=== PATIENT | male | born 1990 | race Caucasian/White ===

== ENCOUNTER 2016-10-12 22:38 | Observation (INO) | payer SELFPAY ==
[2016-10-12] MEDS ORDERED: Ondansetron 4 MG/2 ML SDV IVPUSH ONE (22:58)
[2016-10-12] MEDS ORDERED: HYDROmorphone 2 MG/ML Syringe IVPUSH ONE (22:58)
[2016-10-12] MEDS ORDERED: Pantoprazole 40 MG Vial IVPUSH ONE (22:58)
[2016-10-12] MEDS ORDERED: Sodium Chloride 0.9% 1,000 ML IV ONE (22:58)
[2016-10-12] MEDS ORDERED: Sodium Chloride 0.9% 2.5 ML Syringe FLUSH PRN (22:58)
[2016-10-12] MEDS ORDERED: Ketorolac 30 MG/ML SDV IVPUSH ONE (22:58)
[2016-10-12] MEDS ORDERED: Sodium Chloride 0.9% 10 ML Syringe FLUSH PRN (22:58)
--- NOTE | 2016-10-12 23:03 | EDM.PDOC ---
ED HPI GENERAL MEDICAL PROBLEM - General Chief Complaint: Abdominal Pain Stated Complaint: STOMACH PAINS Time Seen by Provider: 10/12/16 22:52 - History of Present Illness INITIAL COMMENTS - FREE TEXT/NARRATIVE: HISTORY AND PHYSICAL: History of present illness: The patient is a healthy 26-year-old male who presents with complaints of mid abdominal pain nausea and vomiting that started approximately 5 hours ago. According to the patient he ate some fast food today and did drink some beer which he normally doesn't do and started having the discomfort in the mid abdomen which radiates all over associated with nausea and vomiting all at once. He has not had a fever chest pain or cough and no diarrhea. He states that he takes a lot of [id number] medications for heartburn and that has been going on for the last one year but he has not seen her provider. He has not had black or bloody stools. The patient took an [id number] nausea med that he was given but no other medications for pain. Patient describes the pain is deep cramping and sharp and he says it is all a result abdomen and does not localize right or left. There is no pain in his flank or his back Review of systems: As per history of present illness and below otherwise all systems reviewed and negative. Past medical history: As per history of present illness and as reviewed below otherwise noncontributory. Surgical history: As per history of present illness and as reviewed below otherwise noncontributory. Social history: No reported history of drug or alcohol abuse. Family history: As per history of present illness and as reviewed below otherwise noncontributory. Physical exam: Gen.: Well-developed well-nourished male who is nontoxic and looks uncomfortable in the room and is somewhat dramatic with exam but is consolable. Vital signs of the note by me. HEENT: Atraumatic, normocephalic, pupils reactive, negative for conjunctival pallor or scleral icterus, mucous membranes tacky, throat clear, neck supple, nontender, trachea midline. Lungs: Clear to auscultation, breath sounds equal bilaterally, chest nontender. Heart: S1S2, regular, rate and rhythm no overt murmurs D. Abdomen: Soft, nondistended, flat abdomen without any tympany and bowel sounds are very hypoactive. There is diffuse abdominal tenderness which is more localized in the mid abdomen and to the right in the left of the umbilicus not specifically low or high. There is some voluntary guarding but no involuntary guarding or rebound. Negative for masses or hepatosplenomegaly. Negative for costovertebral tenderness. Pelvis: Stable nontender. Genitourinary: Deferred. Rectal: Deferred. Extremities: Atraumatic, negative for cords or calf pain. Neurovascular unremarkable. Neuro: Awake, alert, oriented. Cranial nerves II through XII unremarkable. Cerebellum unremarkable. Motor and sensory unremarkable throughout. Exam nonfocal. Diagnostics: CBC CMP amylase lipase UA alcohol level CT scan of the abdomen and pelvis Therapeutics: IV IV fluids Zofran Toradol Dilaudid Zosyn 0030: Dr. Ramirez has reviewed the CT scan and feels that the patient has acute appendicitis and requested I give a dose of Zosyn. We will plan on observing the patient and having surgery later this morning. The patient and significant other at the bedside are aware of this care plan. The patient last ate before 6 PM last evening. Impression: Acute appendicitis Definitive disposition and diagnosis as appropriate pending reevaluation and review of above. Right Upper Abdomen Pain Score (Numeric/FACES): 5 - Related Data Allergies Allergy/AdvReac Type Severity Reaction Status Date / Time No Known Allergies Allergy Verified 10/12/16 22:48 Home Meds: Home Meds . [No Known Home Meds] 10/12/16 [History] Past Medical History - Past Health History Medical/Surgical History: Denies Medical/Surgical History - Infectious Disease History Infectious Disease History: Reports: Chicken Pox Social & Family History - Family History Family Medical History: Noncontributory - Tobacco Use Smoking Status *Q: Current Every Day Smoker Years of Tobacco use: 8 Packs/Tins Daily: 1 - Recreational Drug Use Recreational Drug Use: No ED ROS GENERAL - Review of Systems Review Of Systems: ROS reveals no pertinent complaints other than HPI. ED EXAM, GENERAL - Physical Exam Exam: See Below (See dictation) Course - Vital Signs Last Recorded V/S: Last Vital Signs Temp 35.0 C L 10/12/16 22:42 Pulse 78 10/12/16 22:42 Resp 22 H 10/12/16 22:42 BP 130/69 10/12/16 22:42 Pulse Ox 100 10/12/16 22:42 - Orders/Labs/Meds Orders: Active Orders 24 hr Category Date Time Status Patient Status [ADT] Stat ADT 10/13/16 00:31 Ordered Abdomen Pelvis w Cont [CT] Stat Exams 10/12/16 Ordered Abdomen Pelvis w Cont [CT] Stat Exams 10/12/16 22:58 Ordered UA W/MICROSCOPIC [URIN] Stat Lab 10/13/16 00:30 Ordered Piperacillin/Tazobactam [Piperacil-Tazobact] 3.375 gm Med 10/13/16 00:30 Ordered Sodium Chloride 0.9% [Normal Saline] 50 ml IV ONETIME Sodium Chloride 0.9% [Saline Flush] Med 10/12/16 22:58 Active 10 ml FLUSH ASDIRECTED PRN Sodium Chloride 0.9% [Saline Flush] Med 10/12/16 22:58 Active 2.5 ml FLUSH ASDIRECTED PRN Saline Lock Insert [OM.PC] Stat Oth 10/12/16 22:57 Ordered Medication Orders Piperacillin Sod/Tazobactam (Sod 3.375 gm/ Sodium Chloride) 50 mls @ 100 mls/ hr IV ONETIME ONE Stop: 10/13/16 00:59 Sodium Chloride (Saline Flush) 10 ml FLUSH ASDIRECTED PRN PRN Reason: Keep Vein Open Sodium Chloride (Saline Flush) 2.5 ml FLUSH ASDIRECTED PRN PRN Reason: Keep Vein Open Labs: Laboratory Tests 10/12/16 10/12/16 Range/Units 22:50 22:50 WBC 13.36 H (4.0-11.0) K/uL RBC 5.36 (4.50-5.90) M/uL Hgb 17.5 H (13.0-17.0) g/dL Hct 48.8 (38.0-50.0) % MCV 91.0 (80.0-98.0) fL MCH 32.6 H (27.0-32.0) pg MCHC 35.9 (31.0-37.0) g/dL RDW Std Deviation 42.2 (28.0-62.0) fl RDW Coeff of Jayda 13 (11.0-15.0) % Plt Count 253 (150-400) K/uL MPV 10.90 (7.40-12.00) fL Neut % (Auto) 83.2 H (48.0-80.0) % Lymph % (Auto) 14.4 L (16.0-40.0) % [place] % (Auto) 2.0 (0.0-15.0) % Eos % (Auto) 0.2 (0.0-7.0) % Baso % (Auto) 0.2 (0.0-1.5) % Neut # (Auto) 11.1 H (1.4-5.7) K/uL Lymph # (Auto) 1.9 (0.6-2.4) K/uL [place] # (Auto) 0.3 (0.0-0.8) K/uL Eos # (Auto) 0.0 (0.0-0.7) K/uL Baso # (Auto) 0.0 (0.0-0.1) K/uL Nucleated RBC % 0.0 /100WBC Nucleated RBCs # 0 K/uL Sodium 145 (136-146) mmol/L Potassium 3.9 (3.5-5.1) mmol/L Chloride 108 (98-110) mmol/L Carbon Dioxide 22 (21-31) mmol/L BUN 8 (6.0-23.0) mg/dL Creatinine 1.0 (0.6-1.5) mg/dL Est Cr Clr Drug Dosing TNP Estimated GFR (MDRD) > 60.0 ml/min Glucose 120 H (60-110) mg/dL Calcium 10.3 (8.8-10.8) mg/dL Total Bilirubin 0.8 (0.1-1.5) mg/dL AST 29 (5-40) IU/L ALT 24 (8-54) IU/L Alkaline Phosphatase 106 (40-150) Total Protein 8.4 H (6.0-8.0) g/dL Albumin 5.1 H (3.5-5.0) g/dL Globulin 3.3 (2.0-3.5) g/dL Albumin/Globulin Ratio 1.6 (1.3-2.8) Amylase 36 (10-90) U/L Lipase 22 (7-80) U/L Ethyl Alcohol 47.2 mg/dL Meds: Medications Generic Name Dose Route Start Last Admin Trade Name Freq PRN Reason Stop Dose Admin Piperacillin Sod/Tazobactam 50 mls @ 100 mls/hr 10/13/16 00:30 Sod 3.375 gm/ Sodium Chloride IV 10/13/16 00:59 ONETIME ONE Sodium Chloride 10 ml 10/12/16 22:58 Saline Flush FLUSH ASDIRECTED PRN Keep Vein Open Sodium Chloride 2.5 ml 10/12/16 22:58 Saline Flush FLUSH ASDIRECTED PRN Keep Vein Open Discontinued Medications Generic Name Dose Route Start Last Admin Trade Name Freq PRN Reason Stop Dose Admin Hydromorphone HCl 1 mg 10/12/16 22:58 10/12/16 23:07 Dilaudid IVPUSH 10/12/16 22:59 1 mg ONETIME ONE Administration Sodium Chloride 1,000 mls @ 999 mls/hr 10/12/16 22:58 10/12/16 23:05 Normal Saline IV 10/12/16 23:58 999 mls/hr STAT ONE Administration Ketorolac Tromethamine 30 mg 10/12/16 22:58 10/12/16 23:05 Toradol IVPUSH 10/12/16 22:59 30 mg ONETIME ONE Administration Ondansetron HCl 4 mg 10/12/16 22:58 10/12/16 23:02 Zofran IVPUSH 10/12/16 22:59 4 mg ONETIME ONE Administration Pantoprazole Sodium 40 mg 10/12/16 22:58 10/12/16 23:13 Protonix Iv IVPUSH 10/12/16 22:59 40 mg .BOLUS ONE Administration Departure - Departure Time of Disposition: 00:34 Disposition: Refer to Observation Condition: Good Clinical Impression: Appendicitis Qualifiers: Appendicitis type: acute appendicitis Acute appendicitis type: unspecified acute appendicitis type Qualified Code(s): K35.80 - Unspecified acute appendicitis - Discharge Information Forms: ED Department Discharge - My Orders Last 24 Hours: My Active Orders 10/12/16 Abdomen Pelvis w Cont [CT] Stat 10/12/16 22:57 Saline Lock Insert [OM.PC] Stat 10/12/16 22:58 Abdomen Pelvis w Cont [CT] Stat Sodium Chloride 0.9% [Saline Flush] 10 ml FLUSH ASDIRECTED PRN Sodium Chloride 0.9% [Saline Flush] 2.5 ml FLUSH ASDIRECTED PRN 10/13/16 00:30 UA W/MICROSCOPIC [URIN] Stat Piperacillin/Tazobactam [Piperacil-Tazobact] 3.375 gm Sodium Chloride 0.9% [ Normal Saline] 50 ml IV ONETIME 10/13/16 00:31 Patient Status [ADT] Stat - Assessment/Plan Last 24 Hours: My Active Orders 10/12/16 Abdomen Pelvis w Cont [CT] Stat 10/12/16 22:57 Saline Lock Insert [OM.PC] Stat 10/12/16 22:58 Abdomen Pelvis w Cont [CT] Stat Sodium Chloride 0.9% [Saline Flush] 10 ml FLUSH ASDIRECTED PRN Sodium Chloride 0.9% [Saline Flush] 2.5 ml FLUSH ASDIRECTED PRN 10/13/16 00:30 UA W/MICROSCOPIC [URIN] Stat Piperacillin/Tazobactam [Piperacil-Tazobact] 3.375 gm Sodium Chloride 0.9% [ Normal Saline] 50 ml IV ONETIME 10/13/16 00:31 Patient Status [ADT] Stat
[2016-10-12 23:17] LABS: CHLORIDE,CL 108 mmol/L (98-110); SODIUM,NA 145 mmol/L (136-146)
[2016-10-13] MEDS ORDERED: Piperacillin/Tazobactam 3.375 GM in Sodium Chloride 0.9% 50 ML IV ONE (00:30)
--- NOTE | 2016-10-13 01:08 | PCM.HP ---
H&P History of Present Illness - General Date of Service: 10/13/16 Admit Problem/Dx: Patient is a 26 year old otherwise healthy male who presents with abdominal pain. His pain started this evening after 6pm. He had just eaten supper. He developed nausea, vomiting, and RLQ pain. The pain was sharp in nature and made it difficult for him to walk. He c/o subjective fever and chills. He denies any infectious contacts. He has never had anything like this in the past. He presented to the ER and was given 1 L of NS, toradol, zofran and dilaudid. His pain and nausea subsided. Source of Information: Patient History Limitations: Reports: No Limitations Right Upper Abdomen Pain Score (Numeric/FACES): 5 - Related Data Allergies/Adverse Reactions: Allergies Allergy/AdvReac Type Severity Reaction Status Date / Time No Known Allergies Allergy Verified 10/12/16 22:48 Home Medications: Home Meds . [No Known Home Meds] 10/12/16 [History] Past Medical History - Past Health History Medical/Surgical History: Denies Medical/Surgical History Cardiovascular History: Reports: Heart Murmur - Infectious Disease History Infectious Disease History: Reports: Chicken Pox - Past Surgical History Head Surgeries/Procedures: Reports: None Social & Family History - Family History Family Medical History: Noncontributory - Tobacco Use Smoking Status *Q: Current Every Day Smoker Years of Tobacco use: 8 Packs/Tins Daily: 1 - Recreational Drug Use Recreational Drug Use: No H&P Review of Systems - Review of Systems: Review Of Systems: ROS reveals no pertinent complaints other than HPI. Exam - Exam Exam: See Below - Vital Signs Vital Signs: Last Vital Signs Temp 35.0 C L 10/12/16 22:42 Pulse 78 10/12/16 22:42 Resp 22 H 10/12/16 22:42 BP 130/69 10/12/16 22:42 Pulse Ox 100 10/12/16 22:42 Weight: 95.254 kg - Exam General: Alert, Oriented HEENT: Conjunctiva Clear, EACs Clear, EOMI Neck: Supple, Trachea Midline Lungs: Clear to Auscultation, Normal Respiratory Effort Cardiovascular: Regular Rate, Regular Rhythm GI/Abdominal Exam: Soft, Non-Tender, No Distention, No Mass, Pelvis Stable. No : Distended, Guarding, Rigid, Rebound, Tender (Male) Exam: No Hernia Back Exam: Normal Inspection Extremities: Normal Inspection, Normal Range of Motion - Patient Data Result Diagrams: 10/12/16 22:50 10/12/16 22:50 *Q Meaningful Use (ADM) - VTE *Q VTE Criteria *Q: - Stroke *Q Stroke Criteria *Q: - AMI *Q AMI Criteria *Q: - Problem List (1) Abdominal pain SNOMED Code(s): 65002347 ICD Code: R10.9 - UNSPECIFIED ABDOMINAL PAIN Status: Acute Current Visit : Yes (2) Nausea & vomiting SNOMED Code(s): 30520359 ICD Code: R11.2 - NAUSEA WITH VOMITING, UNSPECIFIED Status: Acute Current Visit: Yes Problem List Initiated/Reviewed/Updated: Yes Orders Last 24hrs: Medication Orders Sodium Chloride (Saline Flush) 10 ml FLUSH ASDIRECTED PRN PRN Reason: Keep Vein Open Sodium Chloride (Saline Flush) 2.5 ml FLUSH ASDIRECTED PRN PRN Reason: Keep Vein Open Assessment/Plan Comment:: The patient's history, labs and initial physical exam by the ER physician are concerning for acute appendicitis. The CT abdomen/pelvis was read as negative and I discussed these findings with the radiologist. I felt I saw an enlarged anterior to the cecum appendix. She feels this is a loop of terminal ileum. I would like to observe the patient overnight. I will not give him pain medication and closely follow his abdominal exam. I will continue IVFs and NPO status. I will not give him any further antibiotics. If in the morning he has no tenderness, is vitally stable, and able to tolerate a diet I will discharge him home. If his pain returns or his WBC remains elevated I will take him for an appendectomy. The patient does complain of severe heartburn for the last year and so I will check an H. pylori antigen. He was given IV protonix in the ED. He will eventually need to be re-evaluated as an outpatient.
[2016-10-13] MEDS ORDERED: diphenhydrAMINE 50 MG/ML SDV IVPUSH PRN (01:20)
[2016-10-13] MEDS ORDERED: Ondansetron 4 MG/2 ML SDV IVPUSH PRN (01:20)
[2016-10-13] MEDS ORDERED: Lactated Ringers 1,000 ML IV SCH (01:30)
[2016-10-13] MEDS ORDERED: Iopamidol 755 MG/ML 500 ML Multipack Bottle IVPUSH STA (01:47)
[2016-10-13 08:48] VITALS: BP 121/64
--- NOTE | 2016-10-13 09:52 | PCM.DCSUM1 ---
Discharge Summary - Hospital Course Free Text/Narrative:: Patient is a 26 yo male admited last evening with nausea vomiting and RLQ with peritoneal signs on arrival. His labs showed a leukocytosis with left shift. A CT was performed that was read as negative, but given his clinical presentation and labs he was admited overnight for observation. In the ED he was given IV protonix, IV dilaudid, toradol and zofran with resolution of his symptoms. He was given IVF and kept NPO. He was stable over the last 8 hours and this morning his CBC was normal. He was hungry and he denied any abdominal pain. He was ambulating without difficulty. His vitals were stable. His abdominal exam was benign and therefore he was discharged home. - Discharge Data Discharge Date: 10/13/16 Discharge Disposition: Home, Self-Care 01 Condition: Good - Discharge Diagnosis/Problem(s) (1) Abdominal pain SNOMED Code(s): 42562839 ICD Code: R10.9 - UNSPECIFIED ABDOMINAL PAIN Status: Acute Current Visit : Yes (2) Nausea & vomiting SNOMED Code(s): 90688639 ICD Code: R11.2 - NAUSEA WITH VOMITING, UNSPECIFIED Status: Acute Current Visit: Yes - Patient Instructions Diet: Regular Diet as Tolerated Activity: Rest and Relax Today Driving: May Drive Today Showering/Bathing: May Shower Notify Provider of: Fever, Increased Pain, Nausea and/or Vomiting - Discharge Plan Prescriptions/Med Rec: Omeprazole 20 mg PO DAILY #30 cap.cr Home Medications: Home Meds Omeprazole 20 mg PO DAILY #30 cap.cr 10/13/16 [Rx] Patient Handouts: Abdominal Pain, Adult, Omeprazole tablets (OTC) Referrals: Eunice Ramriez MD [Physician] - (Call on Saturday to schedule a hospital follow up in 4 weeks) - Discharge Summary/Plan Comment DC Time >30 min.: No - General Info Date of Service: 10/13/16 Functional Status: Reports: Pain Controlled, Ambulating, Urinating, Other ( Patient is hungry and wants to eat. ) - Review of Systems General: Reports: No Symptoms Pulmonary: Reports: No Symptoms Cardiovascular: Reports: No Symptoms Gastrointestinal: Reports: No Symptoms - Patient Data Vitals - Most Recent: Last Vital Signs Temp 36.4 C 10/13/16 08:00 Pulse 71 10/13/16 08:00 Resp 16 10/13/16 08:00 BP 121/64 10/13/16 08:00 Pulse Ox 95 10/13/16 08:00 Weight - Most Recent: 95.254 kg I&O - Last 24 hours: Intake & Output 10/12/16 10/13/16 10/13/16 22:59 06:59 14:59 Intake Total 1150 Output Total 250 Balance 900 Lab Results - Last 24 hrs: Laboratory Results - last 24 hr 10/13/16 10/13/16 Range/Units 01:22 05:04 WBC 10.10 (4.0-11.0) K/uL RBC 4.74 (4.50-5.90) M/uL Hgb 14.9 (13.0-17.0) g/dL Hct 44.0 (38.0-50.0) % MCV 92.8 (80.0-98.0) fL MCH 31.4 (27.0-32.0) pg MCHC 33.9 (31.0-37.0) g/dL RDW Std Deviation 43.7 (28.0-62.0) fl RDW Coeff of Jayda 13 (11.0-15.0) % Plt Count 258 (150-400) K/uL MPV 10.90 (7.40-12.00) fL Neut % (Auto) 77.6 (48.0-80.0) % Lymph % (Auto) 17.1 (16.0-40.0) % [place] % (Auto) 4.6 (0.0-15.0) % Eos % (Auto) 0.5 (0.0-7.0) % Baso % (Auto) 0.2 (0.0-1.5) % Neut # (Auto) 7.8 H (1.4-5.7) K/uL Lymph # (Auto) 1.7 (0.6-2.4) K/uL [place] # (Auto) 0.5 (0.0-0.8) K/uL Eos # (Auto) 0.1 (0.0-0.7) K/uL Baso # (Auto) 0.0 (0.0-0.1) K/uL Nucleated RBC % 0.0 /100WBC Nucleated RBCs # 0 K/uL H. pylori IgG Antibody NEGATIVE (NEG) Med Orders - Current: Current Medications Diphenhydramine HCl (Benadryl) 25 mg IVPUSH Q4H PRN PRN Reason: Itching Lactated Ringer's (Ringers, Lactated) 1,000 mls @ 125 mls/hr IV ASDIRECTED KEVEN Last Admin: 10/13/16 01:45 Dose: 125 mls/hr Ondansetron HCl (Zofran) 4 mg IVPUSH Q6H PRN PRN Reason: Nausea/Vomiting Sodium Chloride (Saline Flush) 10 ml FLUSH ASDIRECTED PRN PRN Reason: Keep Vein Open Sodium Chloride (Saline Flush) 2.5 ml FLUSH ASDIRECTED PRN PRN Reason: Keep Vein Open Discontinued Medications Hydromorphone HCl (Dilaudid) 1 mg IVPUSH ONETIME ONE Stop: 10/12/16 22:59 Last Admin: 10/12/16 23:07 Dose: 1 mg Sodium Chloride (Normal Saline) 1,000 mls @ 999 mls/hr IV STAT ONE Stop: 10/12/16 23:58 Last Admin: 10/12/16 23:05 Dose: 999 mls/hr Piperacillin Sod/Tazobactam (Sod 3.375 gm/ Sodium Chloride) 50 mls @ 100 mls/ hr IV ONETIME ONE Stop: 10/13/16 00:59 Last Admin: 10/13/16 00:42 Dose: 100 mls/hr Iopamidol (Isovue Multipack-370 (76%)) 100 ml IVPUSH ONETIME STA Stop: 10/13/16 01:48 Last Admin: 10/13/16 01:47 Dose: 100 ml Ketorolac Tromethamine (Toradol) 30 mg IVPUSH ONETIME ONE Stop: 10/12/16 22:59 Last Admin: 10/12/16 23:05 Dose: 30 mg Ondansetron HCl (Zofran) 4 mg IVPUSH ONETIME ONE Stop: 10/12/16 22:59 Last Admin: 10/12/16 23:02 Dose: 4 mg Pantoprazole Sodium (Protonix Iv) 40 mg IVPUSH .BOLUS ONE Stop: 10/12/16 22:59 Last Admin: 10/12/16 23:13 Dose: 40 mg - Exam General: Reports: Alert, Oriented HEENT: Reports: Pupils Equal, Pupils Reactive Neck: Reports: Supple Lungs: Reports: Normal Respiratory Effort Cardiovascular: Reports: Regular Rate GI/Abdominal Exam: Soft, Non-Tender, No Distention. No: Guarding, Rigid, Rebound, Tender *Q Meaningful Use (DIS) - VTE *Q VTE Criteria *Q: - Stroke *Q Stroke Criteria *Q: - AMI *Q AMI Criteria *Q:
--- NOTE | 2016-10-15 10:48 | CT ---
EXAM DATE: 10/13/16 PATIENT'S AGE: 26 Patient: KIMI BELTRÁN Facility: [place], [place] Site . Site : 1990 Study: CT Abdomen/Pelvis [id number]/29/2017 12:42:07 AM Ordering Physician: ELISABET Final Report: INDICATION: Right upper quadrant pain TECHNIQUE: CT abdomen and pelvis acquired with IV contrast. COMPARISON: None FINDINGS: Lower chest: Unremarkable. Liver: Unremarkable. Spleen: Unremarkable. Pancreas: Unremarkable. Gallbladder and bile ducts: Unremarkable. Adrenal glands: Unremarkable. Kidneys: Unremarkable. GI tract: Unremarkable. Appendix is normal. Vascular structures: Unremarkable. Lymph nodes: Unremarkable. Miscellaneous: Unremarkable. No free air or significant free fluid. Pelvic Organs: Unremarkable. Bones: Unremarkable for age. IMPRESSION: Unremarkable CT of the abdomen and pelvis. Please note that all CT scans at this facility use dose modulation, iterative reconstruction, and/or weight-based dosing when appropriate to reduce radiation dose to as low as reasonably achievable. Dictated by Fina Brice MD @ Oct 13 2016 12:48AM (Electronic Signature) Report Signed by Proxy. [facility]
== END 2016-10-13 09:45 | disposition home or self-care (01) ==
LOC: MW.ED 22:38 → MW.MS 10-13 00:38
PROVIDERS: ADMIT Surgery; ATTEND Surgery
DX: R10.31 Right lower quadrant pain (principal); R11.2 Nausea with vomiting, unspecified; F17.210 Nicotine dependence, cigarettes, uncomplicated; D72.829 Elevated white blood cell count, unspecified
CPT/HCPCS: 36415; 74177; 80053; 81001; 82150; 83690; 85025; 86677; 96361; 96365; 96375; 99285; C9113; G0480; J1170; J1885; J2405; J2543; J7040; J7050; J7120; Q9967; 99283; G0378

== ENCOUNTER 2017-08-11 11:58 | Emergency (ER) | payer SELFPAY ==
--- NOTE | 2017-08-11 12:30 | EDM.PDOC ---
ED HPI GENERAL MEDICAL PROBLEM - General Chief Complaint: ENT Problem Stated Complaint: SORE THROAT Time Seen by Provider: 08/11/17 12:27 Source of Information: Reports: Patient, Family History Limitations: Reports: No Limitations - History of Present Illness INITIAL COMMENTS - FREE TEXT/NARRATIVE: HISTORY AND PHYSICAL: []26-year-old male presenting with swelling to the right side of his jaw History of Present Illness: []Admission is trying to get on Medicaid in [place] to have his dental visits paid for He has dental caries fractured tooth at the tooth #30 Review of Systems: As per history of present illness and below otherwise all systems reviewed and negative. Past medical history: As per history of present illness and as reviewed below otherwise noncontributory. Surgical history: As per history of present illness and as reviewed below otherwise noncontributory. Social history: No reported history of drug or alcohol abuse. Family history: As per history of present illness and as reviewed below otherwise noncontributory. Physical exam: Oriented male answering questions appropriately in full sentences with out any shortness of breath he is nontoxic in appearance HEENT: Atraumatic, normocehpalic, pupils reactive, negative for conjunctival pallor or scleral icterus, mucous membranes moist, throat clear, neck supple, nontender, trachea midline. Acute tenderness with palpation to the outer right jaw line #30 is fractured and has multiple caries gumline is edematous Lungs: Clear to auscultation, breath sounds equal bilaterally, chest non tender. Heart: S1S2, regular, negative for clicks, rubs, or JVD. Abdomen: Soft, nondistended, nontender. Negative for masses or hepatossplenmegaly. Negative for costovertebral tenderness. Pelvis: Stable nontender. Genitourinary: Deferred. Rectal: Deferred Extremities: Atraumatic, negative for cords or calf pain. Neurovascular unremarkable. Neuro: Awake, alert, oriented. Cranial nerves II through XII unremarkable. Cerebellum unremarkable. Motor and sensory unremarkable throughout. Exam nonfocal. Diagnostics: [] Therapeutics: [] Dental balls Impression: []Tooth fracture and caries Plan: []Discharged home Antibiotic therapy amoxicillin Follow up with your dentist will be the only final treatment for this Return to the emergency department as directed and discussed Definitive disposition and diagnosis as appropriate pending reevaluation and review of above. Onset: Gradual Duration: Week(s):, Getting Worse Location: Reports: Face rightg lower dental Pain Score (Numeric/FACES): 3 - Related Data Allergies Allergy/AdvReac Type Severity Reaction Status Date / Time No Known Allergies Allergy Verified 08/11/17 12:10 Home Meds: Home Meds Amoxicillin 500 mg PO TID #30 capsule 08/11/17 [Rx] Past Medical History - Past Health History Medical/Surgical History: Denies Medical/Surgical History Cardiovascular History: Reports: Heart Murmur Gastrointestinal History: Reports: Other (See Below) Other Gastrointestinal History: heartburn - Infectious Disease History Infectious Disease History: Reports: Chicken Pox - Past Surgical History Head Surgeries/Procedures: Reports: None Social & Family History - Family History Family Medical History: Noncontributory - Tobacco Use Smoking Status *Q: Current Every Day Smoker Years of Tobacco use: 7 Packs/Tins Daily: 1 - Caffeine Use Caffeine Use: Reports: Coffee - Recreational Drug Use Recreational Drug Use: No ED ROS ENT - Review of Systems Review Of Systems: ROS reveals no pertinent complaints other than HPI. ED EXAM, ENT - Physical Exam Exam: See Below (see dictation) Course - Vital Signs Last Recorded V/S: Last Vital Signs Temp 35.8 C 08/11/17 12:11 Pulse 72 08/11/17 12:11 Resp 18 08/11/17 12:11 BP 119/72 08/11/17 12:11 Pulse Ox 98 08/11/17 12:11 - Orders/Labs/Meds Meds: Medications Discontinued Medications Generic Name Dose Route Start Last Admin Trade Name Freq PRN Reason Stop Dose Admin Benzocaine 2 each 08/11/17 12:42 Hurricaine One 20% MUCMEM 08/11/17 12:43 ONETIME ONE Lidocaine HCl 15 ml 08/11/17 12:42 Xylocaine 2% Viscous PO 08/11/17 12:43 ONETIME ONE Departure - Departure Time of Disposition: 12:41 Disposition: Home, Self-Care 01 Condition: Good Clinical Impression: Dental abscess, Dental caries extending into dentin Fracture of tooth Qualifiers: Encounter type: initial encounter Fracture type: closed Qualified Code(s): S02.5XXA - Fracture of tooth (traumatic), initial encounter for closed fracture - Discharge Information Prescriptions: Amoxicillin 500 mg PO TID #30 capsule Instructions: Dental Abscess, [id number] Referrals: PCP,None [Primary Care Provider] - Forms: ED Department Discharge Additional Instructions: The following information is given to patients seen in the emergency department who are being discharged to home. This information is to outline your options for follow-up care. We provide all patients seen in our emergency department with a follow-up referral. The need for follow-up, as well as the timing and circumstances, are variable depending upon the specifics of your emergency department visit. If you don't have a primary care physician on staff, we will provide you with a referral. We always advise you to contact your personal physician following an emergency department visit to inform them of the circumstance of the visit and for follow-up with them and/or the need for any referrals to a consulting specialist. The emergency department will also refer you to a specialist when appropriate. This referral assures that you have the opportunity for followup care with a specialist. All of these measure are taken in an effort to provide you with optimal care, which includes your followup. Under all circumstances we always encourage you to contact your private physician who remains a resource for coordinating your care. When calling for followup care, please make the office aware that this follow-up is from your recent emergency room visit. If for any reason you are refused follow-up, please contact the [facility] emergency department at and asked to speak to the emergency department charge nurse. You have an abscess because of your poor dental health He needs to see a dentist to fix this problem You are given dental balls while in the emergency Department for discomfort
[2017-08-11] MEDS ORDERED: Benzocaine 20% Topical Spray UD MUCMEM ONE (12:42)
[2017-08-11] MEDS ORDERED: Lidocaine 2% Viscous Solution 15 ML Cup PO ONE (12:42)
[2017-08-11 13:04] VITALS: BP 109/67
== END 2017-08-11 13:02 | disposition home or self-care (01) ==
LOC: MW.ED 11:58
DX: K03.81 Cracked tooth (principal); K02.9 Dental caries, unspecified; K04.7 Periapical abscess without sinus; F17.210 Nicotine dependence, cigarettes, uncomplicated
CPT/HCPCS: 99282; A9270

== ENCOUNTER 2020-10-05 06:46 | Emergency (ER) | payer MEDICAID ==
--- NOTE | 2020-10-05 07:34 | EDM.PDOC ---
ED HPI GENERAL MEDICAL PROBLEM - General Chief Complaint: Fever Stated Complaint: FEVER Time Seen by Provider: 10/05/20 07:12 Source of Information: Reports: Patient History Limitations: Reports: No Limitations - History of Present Illness INITIAL COMMENTS - FREE TEXT/NARRATIVE: Patient is a 30-year-old male who presents today for fever. States he had a fever for the past 3 days. And his girlfriend states has been trying [id number] day and NyQuil. He states that he also has a productive cough and some nasal drainage. He also reports some body ache. He states he is been able to tolerate p.o. Denies any shortness of breath increased urination rashes or confusion or any other concerning symptoms. lower back Pain Score (Numeric/FACES): 4 - Related Data Allergies Allergy/AdvReac Type Severity Reaction Status Date / Time No Known Allergies Allergy Verified 10/05/20 07:16 Home Meds: Home Meds . [No Known Home Meds] 10/05/20 [History] Past Medical History - Past Health History Medical/Surgical History: Denies Medical/Surgical History HEENT History: Reports: None Cardiovascular History: Reports: Heart Murmur Respiratory History: Reports: None Gastrointestinal History: Reports: Other (See Below) Other Gastrointestinal History: heartburn Genitourinary History: Reports: None Musculoskeletal History: Reports: None Neurological History: Reports: None Psychiatric History: Reports: None Endocrine/Metabolic History: Reports: None Hematologic History: Reports: None Immunologic History: Reports: None Oncologic (Cancer) History: Reports: None Dermatologic History: Reports: None - Infectious Disease History Infectious Disease History: Reports: Chicken Pox - Past Surgical History Head Surgeries/Procedures: Reports: None Social & Family History - Family History Family Medical History: No Pertinent Family History - Tobacco Use Tobacco Use Status *Q: Current Every Day Tobacco User Years of Tobacco use: 14 Packs/Tins Daily: 1 - Caffeine Use Caffeine Use: Reports: None - Recreational Drug Use Recreational Drug Use: No ED ROS GENERAL - Review of Systems Review Of Systems: See Below Constitutional: Reports: Fever, Fatigue HEENT: Reports: No Symptoms Respiratory: Reports: No Symptoms Cardiovascular: Reports: No Symptoms Endocrine: Reports: No Symptoms GI/Abdominal: Reports: No Symptoms : Reports: No Symptoms Musculoskeletal: Reports: No Symptoms Skin: Reports: No Symptoms Neurological: Reports: No Symptoms Psychiatric: Reports: No Symptoms Hematologic/Lymphatic: Reports: No Symptoms Immunologic: Reports: No Symptoms ED EXAM, GENERAL - Physical Exam Exam: See Below Exam Limited By: No Limitations General Appearance: Alert, WD/WN, No Apparent Distress Neck: Normal Inspection Respiratory/Chest: No Respiratory Distress, Lungs Clear Cardiovascular: Normal Peripheral Pulses, Regular Rate, Rhythm GI/Abdominal: Normal Bowel Sounds, Soft, Non-Tender Neurological: Alert, Oriented, CN II-XII Intact, Normal Cognition, Normal Gait Course - Vital Signs Last Recorded V/S: Last Vital Signs Temp 98.0 F 10/05/20 07:13 Pulse 82 10/05/20 08:28 Resp 18 10/05/20 08:28 BP 128/71 10/05/20 08:28 Pulse Ox 98 10/05/20 08:28 - Orders/Labs/Meds Labs: Laboratory Tests 10/05/20 Range/Units 07:40 Influenza Type A RNA NEGATIVE (NEGATIVE) Influenza Type B RNA NEGATIVE (NEGATIVE) SARS-CoV-2 RNA (ATTILA) NEGATIVE (NEGATIVE) - Re-Assessments/Exams Free Text/Narrative Re-Assessment/Exam: 10/05/20 08:36 Patient Covid is negative x-ray also negative. Patient looks well on exam is not febrile satting 100% on room air patient will be discharged home and give strict return precautions. Departure - Departure Time of Disposition: 08:37 Disposition: Home, Self-Care 01 Condition: Good Clinical Impression: Viral illness - Discharge Information *PRESCRIPTION DRUG MONITORING PROGRAM REVIEWED*: Not Applicable *COPY OF PRESCRIPTION DRUG MONITORING REPORT IN PATIENT ESTEFANY: Not Applicable Instructions: Viral Illness, Adult Referrals: PCP,None [Primary Care Provider] - Forms: ED Department Discharge Additional Instructions: The following information is given to patients seen in the emergency department who are being discharged to home. This information is to outline your options for follow-up care. We provide all patients seen in our emergency department with a follow-up referral. The need for follow-up, as well as the timing and circumstances, are variable depending upon the specifics of your emergency department visit. If you don't have a primary care physician on staff, we will provide you with a referral. We always advise you to contact your personal physician following an emergency department visit to inform them of the circumstance of the visit and for follow-up with them and/or the need for any referrals to a consulting specialist. The emergency department will also refer you to a specialist when appropriate. This referral assures that you have the opportunity for follow-up care with a specialist. All of these measure are taken in an effort to provide you with optimal care, which includes your follow-up. Under all circumstances we always encourage you to contact your private physician who remains a resource for coordinating your care. When calling for f ollow-up care, please make the office aware that this follow-up is from your recent emergency room visit. If for any reason you are refused follow-up, please contact the [facility] Emergency Department at and asked to speak to the emergency department charge nurse. Please follow up with your primary care physician. If you do not have a primary care physician, see below: [facility] [address] [place] [id number] [facility] [address] [place] [id number] You were evaluated in the Emergency Department today for a cough. Your chest xray did not show evidence of a pneumonia- your cough is most likely due to a viral illness which will improve on its own with rest and fluids. You can take over the counter medications such as dextromethorphan to help manage your symptoms. Please schedule an appointment for follow up with your primary care physician within two days. Return to the Emergency Department if you experience worsening cough, fever 100.4 F or greater, recurrent vomiting, chest pain, shortness of breath, or any other concerning symptoms. Thank you for choosing us for your care Sepsis Event Note (ED) - Evaluation Sepsis Screening Result: No Definite Risk - Focused Exam Vital Signs: Vital Signs Temp Pulse Resp BP Pulse Ox 10/05/20 08:28 82 18 128/71 98 10/05/20 07:13 98.0 F 83 18 131/80 96 - Assessment/Plan Plan: Patient is a 30-year-old male presents today for fever. Patient is try [id number] medication without relief. We will obtain a Covid swab/flu as well as chest x-ray.
--- NOTE | 2020-10-05 08:09 | CR ---
INDICATION: Cough TECHNIQUE: Chest 1 view COMPARISON: None FINDINGS: Cardiovascular and mediastinum: Heart size and vasculature are normal in caliber and appearance. Lungs and pleural spaces: Lungs are clear. No sign of infiltrate or mass. No sign of pleural effusion. No pneumothorax. Bones and soft tissues: No significant findings. IMPRESSION: Negative chest. No sign of pneumonia. Dictated by Fadi Dickinson MD @ 10/05/2020 8:07:[address] Fadi Dickinson @ Oct 05 2020 8:07AM
[2020-10-05 08:24] LABS: CORONAVIRUS COVID-19 NAA NEGATIVE (NEGATIVE); INFLUENZA A NAA NEGATIVE (NEGATIVE); INFLUENZA B NAA NEGATIVE (NEGATIVE)
[2020-10-05 08:41] VITALS: BP 125/81; PULSE 78
== END 2020-10-05 08:48 | disposition home or self-care (01) ==
LOC: MW.ED 06:46
DX: B34.9 Viral infection, unspecified (principal); Z20.822 Contact with and (suspected) exposure to COVID-19; Z72.0 Tobacco use
CPT/HCPCS: 0240U; 71045; 99283

== ENCOUNTER 2021-05-01 05:01 | Emergency (ER) | payer MEDICAID ==
[2021-05-01] MEDS ORDERED: Sodium Chloride 0.9% 2.5 ML Syringe FLUSH PRN (05:20)
[2021-05-01] MEDS ORDERED: Sodium Chloride 0.9% 10 ML Syringe FLUSH PRN (05:20)
[2021-05-01 05:52] LABS: BLOOD UREA NITROGEN,BUN 8 mg/dL (7.0-18.0); CARBON DIOXIDE,CO2 29.9 mmol/L (21.0-32.0); CHLORIDE,CL 102 mmol/L (98-107); GLUCOSE RANDOM 90 mg/dL (74-106); POTASSIUM,K 3.9 mmol/L (3.5-5.1); SODIUM,NA 141 mmol/L (136-148)
[2021-05-01 06:16] VITALS: BP 112/80; PULSE 73
== END 2021-05-01 06:21 | disposition home or self-care (01) ==
LOC: MW.ED 05:01
DX: K62.5 Hemorrhage of anus and rectum (principal); Z72.0 Tobacco use
CPT/HCPCS: 36415; 80053; 85025; 99282; 99283

== ENCOUNTER 2021-11-20 21:55 | Emergency (ER) | payer MEDICAID ==
[2021-11-20] MEDS ORDERED: Tetracaine HCl/PF 0.5% 4 ML Bottle EYELF ONE (22:19)
[2021-11-20] MEDS ORDERED: Gentamicin 0.3% Ophth Soln 5 ML Bottle EYELF STA (22:28)
[2021-11-20 23:01] VITALS: BP 125/78; PULSE 76
== END 2021-11-20 23:01 | disposition home or self-care (01) ==
LOC: MW.ED 21:55
DX: T15.02XA Foreign body in cornea, left eye, initial encounter (principal)
CPT/HCPCS: 65220; 99283; A9270; 65205

== ENCOUNTER 2022-09-23 20:52 | Emergency (ER) | payer OTHER, MEDICAID ==
[2022-09-23] MEDS ORDERED: Ketorolac 30 MG/ML SDV IVPUSH ONE (21:03)
[2022-09-23] MEDS ORDERED: Sodium Chloride 0.9% 1,000 ML IV ONE (21:03)
[2022-09-23] MEDS ORDERED: Ondansetron 4 MG/2 ML SDV IVPUSH ONE (21:03)
[2022-09-23] MEDS ORDERED: Morphine 4 MG/ML Syringe IVPUSH ONE (21:03)
[2022-09-23] MEDS ORDERED: Iopamidol 755 MG/ML 500 ML Multipack Bottle IVPUSH ONE (21:14)
[2022-09-23 21:17] LABS: BASOPHILS PERCENT AUTO 0.5 % (0.0-1.5); EOSINOPHILS ABSOLUTE AUTO 0.7 K/uL (0.0-0.7); EOSINOPHILS PERCENT AUTO 7.7 % (0.0-7.0); HEMATOCRIT 43.3 % (38.0-50.0); HEMOGLOBIN 15.1 g/dL (13.0-17.0); LYMPHOCYTES ABSOLUTE AUTO 3.8 K/uL (0.6-2.4); LYMPHOCYTES PERCENT AUTO 42.9 % (16.0-40.0); MEAN CORPUSCULAR HGB CONC 34.9 g/dL (31.0-37.0); MEAN CORPUSCULAR VOLUME 94.5 fL (80.0-98.0); MONOCYTES ABSOLUTE AUTO 0.5 K/uL (0.0-0.8); NEUTROPHILS ABSOLUTE AUTO 3.8 K/uL (1.4-5.7); NEUTROPHILS PERCENT AUTO 42.9 % (48.0-80.0); PLATELET COUNT,PLT 247 K/uL (150-400); RED BLOOD CELL COUNT 4.58 M/uL (4.50-5.90); WHITE BLOOD CELL COUNT,WBC 8.88 K/uL (4.0-11.0)
[2022-09-23 21:18] LABS: APPEARANCE,URINE SLT CLOUDY; COLOR,URINE YELLOW; GLUCOSE,URINE NEGATIVE (NEGATIVE); KETONES,URINE NEGATIVE (NEGATIVE); LEUKOCYTE ESTERASE,URINE NEGATIVE (NEGATIVE); NITRITE,URINE NEGATIVE (NEGATIVE); OCCULT BLOOD,URINE MODERATE (NEGATIVE); PH,URINE 5.5 (5.0-8.0); PROTEIN,URINE TRACE mg/dL (NEGATIVE); UROBILINOGEN,URINE 0.2 EU/dL (<2.0)
[2022-09-23 21:26] LABS: BILIRUBIN,URINE SMALL (NEGATIVE)
[2022-09-23 21:32] LABS: BACTERIA,URINE RARE (NEGATIVE); EPITHELIAL CELLS,URINE RARE (NONE-FEW)
[2022-09-23 21:33] LABS: MUCUS,URINE LIGHT (NONE-MOD)
[2022-09-23 21:39] LABS: A/G RATIO 1.3 (0.9-1.6); ALBUMIN 3.9 g/dL (3.4-5.0); BILIRUBIN TOTAL 0.3 mg/dL (0.2-1.0); CALCIUM 8.6 mg/dL (8.5-10.1); CARBON DIOXIDE,CO2 27.4 mmol/L (21.0-32.0); CREATININE 1.2 mg/dL (0.8-1.3); EST CRCL DRUG DOSING (CG) 89.04 mL/min; POTASSIUM,K 4.3 mmol/L (3.5-5.1)
[2022-09-23] MEDS ORDERED: HYDROmorphone 1 MG/ML Syringe IVPUSH ONE (22:48)
[2022-09-23 22:56] VITALS: BP 110/61; PULSE 63
== END 2022-09-23 23:02 | disposition home or self-care (01) ==
LOC: MW.ED 20:52
DX: K92.2 Gastrointestinal hemorrhage, unspecified (principal)
CPT/HCPCS: 36415; 74177; 80053; 81001; 85025; 96361; 96374; 96375; 99284; J1170; J1885; J2270; J2405; J7030; Q9967

== ENCOUNTER 2022-09-27 19:51 | Emergency (ER) | payer OTHER ==
[2022-09-27] MEDS ORDERED: Ketorolac 30 MG/ML SDV IM STA (23:20)
[2022-09-27] MEDS ORDERED: HYDROmorphone 1 MG/ML Syringe IM ONE (23:20)
[2022-09-27 23:42] LABS: BASOPHILS PERCENT AUTO 0.3 % (0.0-1.5); EOSINOPHILS ABSOLUTE AUTO 0.4 K/uL (0.0-0.7); EOSINOPHILS PERCENT AUTO 4.4 % (0.0-7.0); HEMATOCRIT 45.9 % (38.0-50.0); LYMPHOCYTES ABSOLUTE AUTO 2.9 K/uL (0.6-2.4); LYMPHOCYTES PERCENT AUTO 33.6 % (16.0-40.0); MEAN CORPUSCULAR HEMOGLOBIN 32.5 pg (27.0-32.0); MEAN CORPUSCULAR HGB CONC 34.9 g/dL (31.0-37.0); MEAN CORPUSCULAR VOLUME 93.1 fL (80.0-98.0); MONOCYTES ABSOLUTE AUTO 0.4 K/uL (0.0-0.8); MONOCYTES PERCENT AUTO 4.8 % (0.0-15.0); NEUTROPHILS ABSOLUTE AUTO 4.9 K/uL (1.4-5.7); NEUTROPHILS PERCENT AUTO 56.9 % (48.0-80.0); NRBC ABSOLUTE 0 K/uL; PLATELET COUNT,PLT 234 K/uL (150-400); RED BLOOD CELL COUNT 4.93 M/uL (4.50-5.90)
[2022-09-27] MEDS ORDERED: Ondansetron 4 MG/2 ML SDV ONE (23:58)
[2022-09-27] MEDS ORDERED: Ondansetron 4 MG/2 ML SDV IVPUSH STA (23:59)
[2022-09-28 00:06] LABS: A/G RATIO 1.3 (0.9-1.6); ALBUMIN 4.4 g/dL (3.4-5.0); BILIRUBIN TOTAL 0.4 mg/dL (0.2-1.0); CALCIUM 9.2 mg/dL (8.5-10.1); CARBON DIOXIDE,CO2 28.7 mmol/L (21.0-32.0); EST CRCL DRUG DOSING (CG) 114.24 mL/min; POTASSIUM,K 3.9 mmol/L (3.5-5.1); PROTEIN TOTAL,TP 7.8 g/dL (6.4-8.2)
[2022-09-28 05:47] VITALS: BP 109/69; PULSE 79
== END 2022-09-28 01:35 | disposition home or self-care (01) ==
LOC: MW.ED 19:51
DX: M54.50 Low back pain, unspecified (principal); Z88.5 Allergy status to narcotic agent; Z88.8 Allergy status to other drugs, medicaments and biological substances
CPT/HCPCS: 36415; 80053; 83690; 85025; 96372; 96374; 99283; J1170; J1885; J2405; 99284

== ENCOUNTER 2022-09-29 07:54 | Emergency (ER) | payer OTHER ==
[2022-09-29] MEDS ORDERED: Lactated Ringers 1,000 ML IV ONE (08:20)
[2022-09-29] MEDS ORDERED: Ondansetron 4 MG/2 ML SDV IVPUSH ONE (08:20)
[2022-09-29 08:27] LABS: BASOPHILS PERCENT AUTO 0.2 % (0.0-1.5); EOSINOPHILS ABSOLUTE AUTO 0.2 K/uL (0.0-0.7); EOSINOPHILS PERCENT AUTO 1.4 % (0.0-7.0); HEMATOCRIT 46.3 % (38.0-50.0); HEMOGLOBIN 16.1 g/dL (13.0-17.0); LYMPHOCYTES ABSOLUTE AUTO 2.1 K/uL (0.6-2.4); LYMPHOCYTES PERCENT AUTO 13.3 % (16.0-40.0); MEAN CORPUSCULAR HEMOGLOBIN 32.3 pg (27.0-32.0); MEAN CORPUSCULAR HGB CONC 34.8 g/dL (31.0-37.0); MONOCYTES ABSOLUTE AUTO 0.8 K/uL (0.0-0.8); MONOCYTES PERCENT AUTO 4.9 % (0.0-15.0); NEUTROPHILS ABSOLUTE AUTO 12.5 K/uL (1.4-5.7); NEUTROPHILS PERCENT AUTO 80.2 % (48.0-80.0); NRBC ABSOLUTE 0 K/uL; PLATELET COUNT,PLT 229 K/uL (150-400); RED BLOOD CELL COUNT 4.98 M/uL (4.50-5.90); WHITE BLOOD CELL COUNT,WBC 15.54 K/uL (4.0-11.0)
[2022-09-29 08:49] LABS: A/G RATIO 1.3 (0.9-1.6); ALBUMIN 4.2 g/dL (3.4-5.0); BILIRUBIN TOTAL 0.5 mg/dL (0.2-1.0); CALCIUM 9.2 mg/dL (8.5-10.1); CARBON DIOXIDE,CO2 28.4 mmol/L (21.0-32.0); CREATININE 1.1 mg/dL (0.8-1.3); EST CRCL DRUG DOSING (CG) 103.86 mL/min; POTASSIUM,K 4.6 mmol/L (3.5-5.1); PROTEIN TOTAL,TP 7.5 g/dL (6.4-8.2)
[2022-09-29 09:55] LABS: APPEARANCE,URINE CLEAR; BILIRUBIN,URINE NEGATIVE (NEGATIVE); COLOR,URINE YELLOW; GLUCOSE,URINE NEGATIVE (NEGATIVE); KETONES,URINE NEGATIVE (NEGATIVE); LEUKOCYTE ESTERASE,URINE SMALL (NEGATIVE); NITRITE,URINE NEGATIVE (NEGATIVE); OCCULT BLOOD,URINE TRACE-INTACT (NEGATIVE); PROTEIN,URINE NEGATIVE (NEGATIVE); UROBILINOGEN,URINE 0.2 EU/dL (<2.0)
[2022-09-29 10:04] LABS: BACTERIA,URINE NOT SEEN (NEGATIVE); EPITHELIAL CELLS,URINE OCCASIONAL (NONE-FEW)
[2022-09-29] MEDS ORDERED: Promethazine 25 MG/ML SDV IM ONE (10:40)
[2022-09-29 11:28] VITALS: BP 119/69; PULSE 78
== END 2022-09-29 11:26 | disposition home or self-care (01) ==
LOC: MW.ED 07:54
DX: R11.2 Nausea with vomiting, unspecified (principal); F17.210 Nicotine dependence, cigarettes, uncomplicated; Z88.6 Allergy status to analgesic agent; Z88.5 Allergy status to narcotic agent
CPT/HCPCS: 36415; 51798; 80053; 81001; 83690; 85025; 87086; 93005; 96361; 96365; 96372; 96375; 99284; J1790; J2405; J2550; J3490; J7120; 93010

== ENCOUNTER 2022-10-01 20:43 | Emergency (ER) | payer OTHER ==
[2022-10-01 22:23] LABS: BASOPHILS PERCENT AUTO 0.2 % (0.0-1.5); EOSINOPHILS ABSOLUTE AUTO 0.1 K/uL (0.0-0.7); EOSINOPHILS PERCENT AUTO 0.5 % (0.0-7.0); HEMATOCRIT 49.5 % (38.0-50.0); LYMPHOCYTES ABSOLUTE AUTO 2.4 K/uL (0.6-2.4); LYMPHOCYTES PERCENT AUTO 18.7 % (16.0-40.0); MEAN CORPUSCULAR HGB CONC 36.4 g/dL (31.0-37.0); MEAN CORPUSCULAR VOLUME 90.8 fL (80.0-98.0); MONOCYTES ABSOLUTE AUTO 0.9 K/uL (0.0-0.8); MONOCYTES PERCENT AUTO 7.3 % (0.0-15.0); NEUTROPHILS ABSOLUTE AUTO 9.4 K/uL (1.4-5.7); NEUTROPHILS PERCENT AUTO 73.3 % (48.0-80.0); NRBC ABSOLUTE 0 K/uL; PLATELET COUNT,PLT 235 K/uL (150-400); RED BLOOD CELL COUNT 5.45 M/uL (4.50-5.90); WHITE BLOOD CELL COUNT,WBC 12.87 K/uL (4.0-11.0)
[2022-10-01 22:45] LABS: A/G RATIO 1.3 (0.9-1.6); BILIRUBIN TOTAL 1.3 mg/dL (0.2-1.0); CALCIUM 9.8 mg/dL (8.5-10.1); CARBON DIOXIDE,CO2 30.2 mmol/L (21.0-32.0); EST CRCL DRUG DOSING (CG) 114.24 mL/min; POTASSIUM,K 3.1 mmol/L (3.5-5.1); PROTEIN TOTAL,TP 8.9 g/dL (6.4-8.2); TSH ULTRASENSITIVE 1.62 uIU/mL (0.36-3.74)
[2022-10-01] MEDS ORDERED: HYDROmorphone 1 MG/ML Syringe IVPUSH ONE (22:55)
[2022-10-01 23:15] LABS: BILIRUBIN,URINE NEGATIVE (NEGATIVE); GLUCOSE,URINE NEGATIVE (NEGATIVE); KETONES,URINE 15 mg/dL (NEGATIVE); LEUKOCYTE ESTERASE,URINE NEGATIVE (NEGATIVE); NITRITE,URINE POSITIVE (NEGATIVE); OCCULT BLOOD,URINE TRACE-INTACT (NEGATIVE); PROTEIN,URINE 30 mg/dL (NEGATIVE); UROBILINOGEN,URINE 0.2 EU/dL (<2.0)
[2022-10-01] MEDS ORDERED: Iopamidol 755 MG/ML 500 ML Multipack Bottle IVPUSH ONE (23:15)
[2022-10-01 23:31] LABS: AMPHETAMINES SCREEN, URINE NEGATIVE (CUTOFF=500); BARBITURATE SCREEN,URINE NEGATIVE (CUTOFF=200); BENZODIAZEPINES SCREEN,URINE PRESUMPTIVE POSITIVE (CUTOFF=150); BUPRENORPHINE SCREEN,URINE NEGATIVE (CUTOFF=10); METHADONE SCREEN, URINE NEGATIVE (CUTOFF=200); METHAMPHETAMINES SCREEN, URINE NEGATIVE (CUTOFF=500); OXYCODONE SCREEN,URINE NEGATIVE (CUT0FF=100); PCP SCREEN,URINE NEGATIVE (CUTOFF=25); PROPOXYPHENE SCREEN,URINE NEGATIVE (CUTOFF=300); THC SCREEN,URINE 20 NG/ML PRESUMPTIVE POSITIVE (CUTOFF=50)
[2022-10-01 23:33] LABS: APPEARANCE,URINE SLT CLOUDY; COLOR,URINE AMBER
[2022-10-01 23:34] LABS: BACTERIA,URINE FEW (NEGATIVE); EPITHELIAL CELLS,URINE RARE (NONE-FEW); MUCUS,URINE OCCASIONAL (NONE-MOD); RBC,URINE 0-2 (0-2/HPF)
[2022-10-02] MEDS ORDERED: Haloperidol Lactate 5 MG/ML SDV IM ONE ×2 (00:53→05:22)
[2022-10-02] MEDS ORDERED: Lactated Ringers 1,000 ML IV SCH ×2 (01:00)
[2022-10-02] MEDS: Potassium Chloride 100 ML IV SCH ×2 (01:15→03:15)
[2022-10-02] MEDS ORDERED: Pantoprazole 40 MG in Sodium Chloride 0.9% 10 ML IVPUSH ONE (03:03)
[2022-10-02] MEDS ORDERED: Aluminum Hydroxide/Magnesium Hydroxide/Simethicone XS Susp 30 ML Cup PO ONE (03:03)
[2022-10-02] MEDS ORDERED: Famotidine 20 MG Tab PO ONE (03:03)
[2022-10-02] MEDS ORDERED: cefTRIAXone 1 GM in Sodium Chloride 0.9% 50 ML IV ONE (03:39)
[2022-10-02 06:55] VITALS: BP 126/76; PULSE 73
== END 2022-10-02 06:54 | disposition home or self-care (01) ==
LOC: MW.ED 20:43
DX: R10.9 Unspecified abdominal pain (principal); R11.2 Nausea with vomiting, unspecified; Z88.8 Allergy status to other drugs, medicaments and biological substances; Z88.5 Allergy status to narcotic agent; Z72.0 Tobacco use
CPT/HCPCS: 36415; 71260; 72129; 72132; 74177; 80053; 80305; 81001; 83690; 84443; 85025; 85652; 86140; 87040; 87086; 93005; 96365; 96366; 96367; 96372; 96375; 99284; A9270; C9113; J0696; J1170; J1630; J3480; J3490; J7120; Q9967; 93010

== ENCOUNTER 2022-10-23 10:06 | Day surgery (SDC) | payer OTHER, MEDICAID ==
[~2022-10-23 10:06] MED LIST: Lactated Ringers 1,000 ML IV SCH; Sodium Chloride 0.9% 10 ML Syringe FLUSH PRN; Sodium Chloride 0.9% 2.5 ML Syringe FLUSH PRN; Sodium Chloride 0.9% 20 ML SDV IV PRN
[2022-10-23] MEDS ORDERED: Lidocaine 2% 5 ML SDV ONE (10:32)
[2022-10-23] MEDS ORDERED: Propofol 200 MG/20 ML SDV ONE (10:33)
[2022-10-23 11:23] VITALS: PULSE 67
[2022-10-23 11:34] VITALS: BP 141/90
== END 2022-10-23 11:50 | disposition home or self-care (01) ==
LOC: MW.SDS 10:06
PROVIDERS: ATTEND Surgery
DX: K29.50 Unspecified chronic gastritis without bleeding (principal); K44.9 Diaphragmatic hernia without obstruction or gangrene; K21.00 Gastro-esophageal reflux disease with esophagitis, without bleeding; M54.41 Lumbago with sciatica, right side; F17.210 Nicotine dependence, cigarettes, uncomplicated; Z88.5 Allergy status to narcotic agent; Z79.899 Other long term (current) drug therapy
CPT/HCPCS: 43239; 45380; J2704; J7120; 00813; J3490

== ENCOUNTER 2023-04-24 07:19 | Emergency (ER) | payer SELFPAY ==
[2023-04-24 07:58] LABS: APPEARANCE,URINE CLEAR; GLUCOSE,URINE NEGATIVE (NEGATIVE); KETONES,URINE >=80 mg/dL (NEGATIVE); LEUKOCYTE ESTERASE,URINE NEGATIVE (NEGATIVE); NITRITE,URINE NEGATIVE (NEGATIVE); OCCULT BLOOD,URINE SMALL (NEGATIVE); PH,URINE 7.5 (5.0-8.0); PROTEIN,URINE 100 mg/dL (NEGATIVE)
[2023-04-24 08:01] LABS: BILIRUBIN,URINE SMALL (NEGATIVE); COLOR,URINE DARK YELLOW
[2023-04-24 08:19] LABS: BACTERIA,URINE RARE (NEGATIVE); EPITHELIAL CELLS,URINE OCCASIONAL (NONE-FEW); MUCUS,URINE MODERATE (NONE-MOD)
[2023-04-24 08:44] LABS: BASOPHILS ABSOLUTE AUTO 0.03 K/uL (0.00-0.20); BASOPHILS PERCENT AUTO 0.2 % (0.0-1.0); EOSINOPHILS PERCENT AUTO 1.6 % (0.0-6.0); HEMATOCRIT 47.7 % (42.0-52.0); HEMOGLOBIN 17.1 g/dL (14.0-18.0); IMMATURE GRAN ABSOLUTE AUTO 0.06 K/uL (0.00-0.05); IMMATURE GRAN PERCENT AUTO 0.3 % (0.0-0.4); LYMPHOCYTES ABSOLUTE AUTO 0.73 K/uL (1.00-4.80); MEAN CORPUSCULAR HEMOGLOBIN 32.2 pg (28.0-32.0); MEAN CORPUSCULAR HGB CONC 35.8 g/dL (32.0-36.0); MEAN CORPUSCULAR VOLUME 89.8 fL (83.0-99.0); MEAN PLATELET VOLUME 10.5 fL (9.4-12.4); MONOCYTES ABSOLUTE AUTO 0.36 K/uL (0.00-0.80); NEUTROPHILS ABSOLUTE AUTO 16.71 K/uL (1.80-7.70); NEUTROPHILS PERCENT AUTO 91.9 % (41.0-71.0); PLATELET COUNT,PLT 268 K/uL (150-400); RED BLOOD CELL COUNT 5.31 M/uL (4.52-5.90); WHITE BLOOD CELL COUNT,WBC 18.19 K/uL (3.9-11.3)
[2023-04-24] MEDS: Sodium Chloride 0.9% 2.5 ML Syringe FLUSH PRN (08:51)
[2023-04-24] MEDS: Sodium Chloride 0.9% 10 ML Syringe FLUSH PRN (08:51)
[2023-04-24 09:14] LABS: A/G RATIO 1.3 (0.9-1.6); ALBUMIN 4.8 g/dL (3.4-5.0); BILIRUBIN TOTAL 0.6 mg/dL (0.2-1.0); CALCIUM 9.9 mg/dL (8.5-10.1); CARBON DIOXIDE,CO2 24.3 mmol/L (21.0-32.0); CREATININE 1.1 mg/dL (0.8-1.3); EST CRCL DRUG DOSING (CG) 106.94 mL/min; POTASSIUM,K 3.6 mmol/L (3.5-5.1); PROTEIN TOTAL,TP 8.5 g/dL (6.4-8.2)
[2023-04-24] MEDS: Sodium Chloride 0.9% 1,000 ML IV STA (09:50)
[2023-04-24] MEDS: Morphine 4 MG/ML Syringe IVPUSH ONE (09:52)
[2023-04-24] MEDS: Ondansetron 4 MG/2 ML SDV IVPUSH ONE (09:52)
[2023-04-24 12:13] VITALS: BP 102/83; PULSE 82
== END 2023-04-24 12:17 | disposition home or self-care (01) ==
LOC: MW.ED 07:19
DX: R10.9 Unspecified abdominal pain (principal); K21.9 Gastro-esophageal reflux disease without esophagitis; F17.210 Nicotine dependence, cigarettes, uncomplicated; Z79.899 Other long term (current) drug therapy; Z88.5 Allergy status to narcotic agent; Z88.6 Allergy status to analgesic agent
CPT/HCPCS: 36415; 74177; 80053; 81001; 83690; 85025; 96361; 96374; 96375; 99284; J2270; J2405; J3490; J7030

== ENCOUNTER 2023-04-29 01:21 | Emergency (ER) | payer SELFPAY ==
[2023-04-29] MEDS: Ondansetron 4 MG/2 ML SDV IVPUSH ONE (01:50)
[2023-04-29] MEDS: HYDROmorphone 1 MG/ML Syringe IVPUSH ONE (01:50)
[2023-04-29] MEDS: Sodium Chloride 0.9% 1,000 ML IV ONE (01:50)
[2023-04-29 01:59] LABS: BASOPHILS ABSOLUTE AUTO 0.07 K/uL (0.00-0.20); BASOPHILS PERCENT AUTO 0.6 % (0.0-1.0); EOSINOPHILS ABSOLUTE AUTO 0.11 K/uL (0.00-0.45); HEMATOCRIT 46.5 % (42.0-52.0); HEMOGLOBIN 16.3 g/dL (14.0-18.0); IMMATURE GRAN ABSOLUTE AUTO 0.02 K/uL (0.00-0.05); IMMATURE GRAN PERCENT AUTO 0.2 % (0.0-0.4); LYMPHOCYTES ABSOLUTE AUTO 1.43 K/uL (1.00-4.80); MEAN CORPUSCULAR HGB CONC 35.1 g/dL (32.0-36.0); MEAN CORPUSCULAR VOLUME 91.4 fL (83.0-99.0); MEAN PLATELET VOLUME 10.4 fL (9.4-12.4); MONOCYTES ABSOLUTE AUTO 0.28 K/uL (0.00-0.80); MONOCYTES PERCENT AUTO 2.5 % (0.0-8.0); NEUTROPHILS ABSOLUTE AUTO 9.11 K/uL (1.80-7.70); NEUTROPHILS PERCENT AUTO 82.7 % (41.0-71.0); PLATELET COUNT,PLT 246 K/uL (150-400); RED BLOOD CELL COUNT 5.09 M/uL (4.52-5.90); WHITE BLOOD CELL COUNT,WBC 11.02 K/uL (3.9-11.3)
[2023-04-29 02:34] LABS: A/G RATIO 1.4 (0.9-1.6); ALBUMIN 4.4 g/dL (3.4-5.0); BILIRUBIN TOTAL 0.7 mg/dL (0.2-1.0); CALCIUM 9.2 mg/dL (8.5-10.1); CREATININE 1.2 mg/dL (0.8-1.3); EST CRCL DRUG DOSING (CG) 95.2 mL/min; MAGNESIUM 2.1 mg/dL (1.8-2.4); PROTEIN TOTAL,TP 7.6 g/dL (6.4-8.2)
[2023-04-29 02:57] LABS: APPEARANCE,URINE CLEAR; BILIRUBIN,URINE NEGATIVE (NEGATIVE); COLOR,URINE YELLOW; GLUCOSE,URINE NEGATIVE (NEGATIVE); KETONES,URINE >=80 mg/dL (NEGATIVE); LEUKOCYTE ESTERASE,URINE NEGATIVE (NEGATIVE); NITRITE,URINE NEGATIVE (NEGATIVE); OCCULT BLOOD,URINE NEGATIVE (NEGATIVE); PH,URINE 8.5 (5.0-8.0); PROTEIN,URINE NEGATIVE (NEGATIVE); UROBILINOGEN,URINE 0.2 EU/dL (<2.0)
[2023-04-29 02:57] LABS: CORONAVIRUS COVID-19 NAA NEGATIVE (NEGATIVE); INFLUENZA A NAA NEGATIVE (NEGATIVE); INFLUENZA B NAA NEGATIVE (NEGATIVE); RESPIRATORY SYNCYTIAL VIR NAA NEGATIVE (NEGATIVE)
[2023-04-29] MEDS: Alum Hydro/Mag Hydro/Simeth XS 15 ML, Lidocaine 2% 5 ML PO ONE (03:01)
[2023-04-29 03:47] VITALS: BP 104/63; PULSE 75
== END 2023-04-29 03:40 ==
LOC: MW.ED 01:21
DX: R10.31 Right lower quadrant pain (principal); Z79.899 Other long term (current) drug therapy; Z88.6 Allergy status to analgesic agent; Z88.5 Allergy status to narcotic agent
CPT/HCPCS: 0241U; 36415; 80053; 81003; 83690; 83735; 85025; 96361; 96374; 96375; 99284; A9270; J1170; J2405; J7030; 99285

== ENCOUNTER 2023-05-01 08:41 | Emergency (ER) | payer SELFPAY ==
[2023-05-01] MEDS: Sodium Chloride 0.9% 10 ML Syringe FLUSH PRN (08:54)
[2023-05-01] MEDS: Sodium Chloride 0.9% 2.5 ML Syringe FLUSH PRN (08:54)
[2023-05-01 08:59] LABS: BASOPHILS PERCENT AUTO 0.9 % (0.0-1.0); EOSINOPHILS ABSOLUTE AUTO 0.09 K/uL (0.00-0.45); EOSINOPHILS PERCENT AUTO 0.8 % (0.0-6.0); HEMATOCRIT 49.1 % (42.0-52.0); HEMOGLOBIN 16.9 g/dL (14.0-18.0); IMMATURE GRAN ABSOLUTE AUTO 0.03 K/uL (0.00-0.05); IMMATURE GRAN PERCENT AUTO 0.3 % (0.0-0.4); LYMPHOCYTES PERCENT AUTO 18.6 % (24.0-44.0); MEAN CORPUSCULAR HEMOGLOBIN 31.8 pg (28.0-32.0); MEAN CORPUSCULAR HGB CONC 34.4 g/dL (32.0-36.0); MEAN CORPUSCULAR VOLUME 92.3 fL (83.0-99.0); MEAN PLATELET VOLUME 10.6 fL (9.4-12.4); MONOCYTES ABSOLUTE AUTO 0.44 K/uL (0.00-0.80); MONOCYTES PERCENT AUTO 4.1 % (0.0-8.0); NEUTROPHILS ABSOLUTE AUTO 8.09 K/uL (1.80-7.70); NEUTROPHILS PERCENT AUTO 75.3 % (41.0-71.0); PLATELET COUNT,PLT 238 K/uL (150-400); RED BLOOD CELL COUNT 5.32 M/uL (4.52-5.90); WHITE BLOOD CELL COUNT,WBC 10.75 K/uL (3.9-11.3)
[2023-05-01] MEDS ORDERED: Naloxone 0.4 MG/ML SDV IVPUSH PRN (09:04)
[2023-05-01 09:11] LABS: APPEARANCE,URINE CLEAR; COLOR,URINE YELLOW; GLUCOSE,URINE NEGATIVE (NEGATIVE); KETONES,URINE >=80 mg/dL (NEGATIVE); LEUKOCYTE ESTERASE,URINE NEGATIVE (NEGATIVE); NITRITE,URINE NEGATIVE (NEGATIVE); OCCULT BLOOD,URINE NEGATIVE (NEGATIVE); PH,URINE 8.5 (5.0-8.0); PROTEIN,URINE 30 mg/dL (NEGATIVE); UROBILINOGEN,URINE 0.2 EU/dL (<2.0)
[2023-05-01 09:15] LABS: BILIRUBIN,URINE SMALL (NEGATIVE)
[2023-05-01 09:20] LABS: BACTERIA,URINE FEW (NEGATIVE); EPITHELIAL CELLS,URINE RARE (NONE-FEW); MUCUS,URINE LIGHT (NONE-MOD); RBC,URINE 0-1 (0-2/HPF); WBC,URINE 0-3 (0-5/HPF)
[2023-05-01 09:23] LABS: A/G RATIO 1.4 (0.9-1.6); ALANINE AMINOTRANSFERASE,ALT 22 IU/L (14-63); ALBUMIN 4.7 g/dL (3.4-5.0); ALKALINE PHOSPHATASE 97 U/L (46-116); ASPARTATE AMNIOTRANSFERASE,AST 17 IU/L (15-37); BILIRUBIN TOTAL 0.8 mg/dL (0.2-1.0); BLOOD UREA NITROGEN,BUN 8 mg/dL (7.0-18.0); CALCIUM 9.4 mg/dL (8.5-10.1); CARBON DIOXIDE,CO2 28.5 mmol/L (21.0-32.0); CHLORIDE,CL 105 mmol/L (98-107); CREATININE 1.1 mg/dL (0.8-1.3); GLUCOSE RANDOM 101 mg/dL (74-106); LIPASE 44 U/L (16-77); POTASSIUM,K 3.9 mmol/L (3.5-5.1); PROTEIN TOTAL,TP 8.1 g/dL (6.4-8.2); SODIUM,NA 144 mmol/L (136-148)
[2023-05-01] MEDS: Sodium Chloride 0.9% 1,000 ML IV ONE (09:23)
[2023-05-01] MEDS: Ondansetron 4 MG/2 ML SDV IVPUSH ONE (09:23)
[2023-05-01] MEDS: Morphine 2 MG/ML SYRINGE IVPUSH ONE (09:23)
[2023-05-01 09:26] LABS: ESTIMATED GFR 90 mL/min (>60)
[2023-05-01] MEDS: Morphine 4 MG/ML Syringe IVPUSH ONE (10:25)
[2023-05-01] MEDS: Famotidine 20 MG/2 ML SDV IVPUSH ONE (10:32)
[2023-05-01 10:45] VITALS: BP 121/73; PULSE 72
== END 2023-05-01 10:54 ==
LOC: MW.ED 08:41
DX: R10.31 Right lower quadrant pain (principal); Z88.8 Allergy status to other drugs, medicaments and biological substances; Z79.899 Other long term (current) drug therapy
CPT/HCPCS: 36415; 80053; 81001; 83690; 85025; 86140; 96361; 96374; 96375; 96376; 99284; J2270; J2405; J3490; J7030; 99285